=== PATIENT | female | born 1990 | race Caucasian/White ===

== ENCOUNTER 2017-04-18 21:25 | Emergency (ER) | payer SELFPAY ==
[2017-04-18 21:29] VITALS: BP 134/72; PULSE 96; TEMP 98.1; BMI 25.6
[2017-04-18] MEDS ORDERED: ALBUTEROL SO4 2.5/IPRATROPIUM 0.5 INH SOL 3 ML VIAL.NEB. NEB ONE ×2 (22:18→22:21)
--- NOTE | 2017-04-18 22:21 | PDOC ---
History of Present Illness - General Chief Complaint: Respiratory Stated Complaint: COLD SYMPTOMS Time Seen by Provider: 04/18/17 21:46 History Source: Patient Exam Limitations: No Limitations - History of Present Illness Initial Comments: 04/18/17 22:16 Patient complains of cough, runny nose, fever to 103 today with a moist nonproductive cough. States has general body aches and chills, but denies sore throat or earache pain. Is uncertain as to exposure, no one at home is sick. Works as an lead accountant. Timing/Duration: reports: getting worse, week. denies: just prior to arrival Severity: reports: mild, moderate Associated Symptoms: reports: cough, facial pain, fever/chills, nasal congestion , nasal drainage Past History - Travel Traveled outside of the country in the last 30 days: No Close contact w/someone who was outside of country & ill: No - Past Medical History Allergies/Adverse Reactions: Allergies Allergy/AdvReac Type Severity Reaction Status Date / Time No Known Allergies Allergy Verified 04/18/17 21:29 Home Medications: Ambulatory Orders Albuterol Sulfate Inhaler - [Ventolin HFA Inhaler -] 1 - 2 inh PO Q4H #1 inhaler 04/18/17 Azithromycin [Zithromax -] 250 mg PO DAILY #6 tab 04/18/17 Cardiac Disorders: Yes (heart murmur) - Psycho/Social/Smoking Cessation Hx Suicidal Ideation: No Smoking History: Never smoked Respiratory Specific PMHX - Complaint Specific PMHX Bronchitis: No Pneumonia: No Review of Systems - Review of Systems Able to Perform ROS?: Yes Is the patient limited Uzbek proficient: Yes Constitutional: Yes: Symptoms Reported, See HPI, Fever, Loss of Appetite, Malaise HEENTM: Yes: Symptoms Reported, See HPI, Nose Congestion, Throat Pain. No: Throat Swelling Respiratory: Yes: Symptoms reported, See HPI, Cough (moist ), Wheezing Cardiac (ROS): No: Symptoms Reported ABD/GI: Yes: See HPI. No: Symptoms Reported Musculoskeletal: No: Symptoms Reported All Other Systems: Reviewed and Negative *Physical Exam - Vital Signs Last Vital Signs Temp Pulse Resp BP Pulse Ox 98.1 F 96 H 18 134/72 100 04/18/17 21:27 04/18/17 21:27 04/18/17 21:27 04/18/17 21:27 04/18/17 21:27 - Physical Exam General Appearance: Yes: Nourished, Appropriately Dressed, Apparent Distress, Mild Distress HEENT: positive: IMELDA, TMs Normal (congested but landmarks easily visualized), Nasal Congestion, Rhinorrhea, Sinus Tenderness. negative: Pharynx Normal (mild erythema but no exudate or swelling), Tonsillar Exudate Neck: positive: Tender, Supple, Lymphadenopathy (R), Lymphadenopathy (L) Respiratory/Chest: positive: Lungs Clear, Normal Breath Sounds (but course), Wheezing Cardiovascular: positive: Regular Rhythm Musculoskeletal: positive: Normal Inspection, Vertebral Tenderness Extremity: positive: Normal Capillary Refill, Normal Inspection, Normal Range of Motion Integumentary: positive: Normal Color, Dry, Warm Neurologic: positive: data warehouse administrator II-XII NML intact, Fully Oriented, Alert, Normal Mood/ Affect, Normal Response, Motor Strength 5/5 Progress Note - Progress Note Progress Note: Upper respiratory infection, will continue Proventil puffs 2 puffs 4 times a day for the next 3 days then as needed. We'll give watch and wait azithromycin, and continue conservative measures for an additional 24 hours. *DC/Admit/Observation/Transfer Diagnosis at time of Disposition: Upper respiratory infection Qualifiers: URI type: unspecified viral URI Qualified Code(s): J06.9 - Acute upper respiratory infection, unspecified; B97.89 - Other viral agents as the cause of diseases classified elsewhere - Discharge Dispostion Disposition: HOME Condition at time of disposition: Stable Admit: No - Prescriptions Prescriptions: Albuterol Sulfate Inhaler - [Ventolin HFA Inhaler -] 1 - 2 inh PO Q4H #1 inhaler Azithromycin [Zithromax -] 250 mg PO DAILY #6 tab - Patient Instructions Printed Discharge Instructions: DI for Acute Bronchitis Additional Instructions: Rest, drink lots of fluids: Teas, water, soups, Pedialyte Saltwater gargles Steamy showers/seem to face break up mucus Avoid contact with others until fevers and cough resolved Lots of handwashing and good hygiene Continue [id number] medications for symptomatic relief Tylenol or Motrin for fever and pain 2 puffs albuterol inhaler 4 times a day for next 3 days then as needed Start azithromycin as directed for continued fevers, worsening cough with phlegm production, any changes in symptomatology. Followup with private physician in one to 2 days as needed Return to emergency department for worsened symptoms, fevers, dehydration - Post Discharge Activity Work/School Note: Back to Work
== END 2017-04-18 22:44 | disposition home or self-care (01) ==
LOC: JERFT 21:25
PROC: 3E0F7GC Introduction of Other Therapeutic Substance into Respiratory Tract, Via Natural or Artificial Opening (ICD-10-PCS; principal; 2017-04-18)
DX: J06.9 Acute upper respiratory infection, unspecified (principal)
CPT/HCPCS: 84703; 99281-25

== ENCOUNTER 2017-05-11 12:16 | Emergency (ER) | payer SELFPAY ==
[2017-05-11 12:32] VITALS: BP 118/67; PULSE 73; TEMP 98.4; BMI 26.5
--- NOTE | 2017-05-11 13:11 | PDOC ---
History of Present Illness - General Chief Complaint: Sore Throat Stated Complaint: SORE THROAT Time Seen by Provider: 05/11/17 12:42 History Source: Patient Exam Limitations: No Limitations - History of Present Illness Initial Comments: 05/11/17 12:47 States has felt feverish but did not take temperature, also developed a fine rash this morning has on face and chest wall. No one at home is sick. Has taken no medication for relief 05/11/17 16:19 Timing/Duration: unsure, 24 hours Severity: mild, moderate Associated Symptoms: reports: diaphoresis, fever/chills, headaches, malaise. denies: cough Past History - Travel Traveled outside of the country in the last 30 days: No Close contact w/someone who was outside of country & ill: No - Past Medical History Allergies/Adverse Reactions: Allergies Allergy/AdvReac Type Severity Reaction Status Date / Time No Known Allergies Allergy Verified 05/11/17 12:30 Home Medications: Ambulatory Orders Azithromycin [Zithromax -] 250 mg PO UTDICT #6 tab 05/11/17 Cardiac Disorders: Yes (heart murmur) - Psycho/Social/Smoking Cessation Hx Suicidal Ideation: No Smoking History: Never smoked Review of Systems - Review of Systems Able to Perform ROS?: Yes Is the patient limited Venezuelan proficient: Yes Constitutional: Yes: Symptoms Reported, See HPI, Malaise HEENTM: Yes: Symptoms Reported, See HPI, Nose Congestion Respiratory: No: Symptoms reported Musculoskeletal: No: Symptoms Reported Integumentary: No: Symptoms Reported All Other Systems: Reviewed and Negative *Physical Exam - Vital Signs Last Vital Signs Temp Pulse Resp BP Pulse Ox 98.4 F 73 19 118/67 100 05/11/17 12:30 05/11/17 12:30 05/11/17 12:30 05/11/17 12:30 05/11/17 12:30 - Physical Exam General Appearance: Yes: Nourished, Appropriately Dressed, Apparent Distress HEENT: positive: IMELDA, Normal ENT Inspection, Tonsillar Erythema. negative: TMs Normal (congested but landmarks easily visualized), Pharynx Normal Neck: positive: Supple (tonsils, no exudate but), Lymphadenopathy (R), Lymphadenopathy (L) Respiratory/Chest: positive: Lungs Clear, Normal Breath Sounds Cardiovascular: positive: Regular Rate Gastrointestinal/Abdominal: positive: Soft Musculoskeletal: positive: Normal Inspection Extremity: positive: Normal Capillary Refill, Normal Inspection Integumentary: positive: Normal Color, Dry, Warm Neurologic: positive: shampooer II-XII NML intact, Fully Oriented, Alert, Normal Mood/ Affect, Normal Response, Motor Strength /5 Medical Decision Making - Medical Decision Making 05/11/17 16:22 UCG negative, we'll treat with antibiotics as patient has pharyngitis and a streptococcal-appearing rash. Understands is probably a strep throat and antibiotic azithromycin will treat same. *DC/Admit/Observation/Transfer Diagnosis at time of Disposition: Pharyngitis Qualifiers: Pharyngitis/tonsillitis etiology: unspecified etiology Qualified Code(s): J02.9 - Acute pharyngitis, unspecified - Discharge Dispostion Disposition: HOME Condition at time of disposition: Stable Admit: No - Prescriptions Prescriptions: Azithromycin [Zithromax -] 250 mg PO UTDICT #6 tab - Patient Instructions Printed Discharge Instructions: DI for Pharyngitis/Tonsillopharyngitis -- Adult Additional Instructions: Rest, drink lots of fluids: Teas, water, soups Eat cold things: Ice cream, ice pops, ice chips Saltwater gargles Steamy showers/seem to face break up mucus Avoid contact with others until fevers and pain resolved Lots of handwashing and good hygiene, this is contagious Azithromycin as directed Tylenol or Motrin for fever and pain Followup with private physician in one to 2 days as needed if not improving Return to emergency department for worsened symptoms, fevers, dehydration - Post Discharge Activity Work/School Note: Back to Work
== END 2017-05-11 13:33 | disposition home or self-care (01) ==
LOC: JERFT 12:16
DX: J02.9 Acute pharyngitis, unspecified (principal)
CPT/HCPCS: 84703; 99281-25

== ENCOUNTER 2018-02-09 13:20 | Emergency (ER) | payer OTHER ==
--- NOTE | 2018-02-09 13:32 | PDOC ---
History of Present Illness - General Chief Complaint: Chest Pain Stated Complaint: CHEST PAIN Time Seen by Provider: 02/09/18 13:28 History Source: Patient - History of Present Illness Initial Comments: 02/09/18 13:58 27 year old female with no reported PMH presents after a mechanical fall c/o L sided chest pain. Patient states she walking in her home when she tripped on a bottle hitting her head and torso. Patient denies any LOC and was immediately ambulatory after the fall. Denies any pre-fall chest pain, shortness of breath as well as any post fall nausea. Patient states she tried OTC pain medications without any relief and when she noted increased swelling of her left chest she presented to the ED for further evaluation. Patient denies chest pain, headache or dizziness. Patient denies fever, chills, abdominal pain, nausea, vomit, diarrhea or constipation. Patient denies dysuria, frequency, urgency or hematuria. Patient denies sick contacts or recent travel. Past History - Past Medical History Allergies/Adverse Reactions: Allergies Allergy/AdvReac Type Severity Reaction Status Date / Time No Known Allergies Allergy Verified 02/09/18 13:37 Home Medications: Ambulatory Orders NK [No Known Home Medication] 02/09/18 Cardiac Disorders: Yes (heart murmur) - Suicide/Smoking/Psychosocial Hx Smoking History: Never smoked Review of Systems - Review of Systems Constitutional: No: Chills, Fever HEENTM: No: Recent change in vision Respiratory: No: Shortness of Breath, Wheezing Cardiac (ROS): No: Chest Pain, Edema, Lightheadedness, Palpitations ABD/GI: No: Constipated, Diarrhea, Nausea, Vomiting : No: Burning, Dysuria *Physical Exam - Physical Exam General Appearance: Yes: Nourished, Appropriately Dressed HEENT: positive: EOMI, IMELDA Neck: positive: Trachea midline, Supple Respiratory/Chest: positive: Lungs Clear Cardiovascular: positive: S1, S2. negative: Edema, JVD Vascular Pulses: Dorsalis-Pedis (R): 2+, Doralis-Pedis (L): 2+ Gastrointestinal/Abdominal: positive: Normal Bowel Sounds, Soft Musculoskeletal: positive: Other (no gross clavicular deformity, no TTP, full ROM) Extremity: positive: Normal Capillary Refill, Pelvis Stable Integumentary: positive: Normal Color, Dry, Warm Neurologic: positive: Fully Oriented, Alert Medical Decision Making - Medical Decision Making 02/09/18 14:28 27 year old female presents after a mechanical fall c/o anterior wall chest pain. Physical exam significant for anterior chest wall edema and TTP. Will obtain CXR to r/o fracture, contusion. Pain control with Motrin. Reassess. CXR negative for clavicular fracture as well as pulmonary contusion. Patient's pain significant resolved with Motrin. Will discharge home with return precautions and PMD follow-up. I discussed the physical exam findings, ancillary test results and final diagnoses with the patient. I answered all of the patient's questions. The patient was satisfied with the care received and felt comfortable with the discharge plan and treatment plan. The patient will return to the Emergency Department with any new, persistent or worsening symptoms. *DC/Admit/Observation/Transfer Diagnosis at time of Disposition: Chest pain - Discharge Dispostion Disposition: HOME Condition at time of disposition: Good Admit: No - Referrals Referrals: Jose Torres MD [Staff Physician] - - Patient Instructions Printed Discharge Instructions: Muscle Strain Additional Instructions: You can take Motrin (600 mg) up to three times daily for your chest pain. Call Dr. Brian Garcia (contact information provided) to make an appointment to establish primary care. Return to the Emergency Department for any new/worsening/concerning symptoms. - Post Discharge Activity Forms/Work/School Notes: Back to Work
[2018-02-09] MEDS ORDERED: IBUPROFEN 400 MG TABLET (FP) PO ONE ×2 (13:33→14:27)
[2018-02-09 13:43] VITALS: TEMP 98.1; BMI 28.3
[2018-02-09 14:19] VITALS: BP 116/79; PULSE 82
--- NOTE | 2018-02-09 16:26 | PDOC ---
Attending Attestation - Resident Resident Name: JustusIsabelle - ED Attending Attestation I have performed the following: I have examined & evaluated the patient, The case was reviewed & discussed with the resident, I agree w/resident's findings & plan, Exceptions are as noted - HPI HPI: 02/09/18 15:51 Ms baum is a 27 yo F who presents to the ER with a complaint of chest pain Pt states she tripped and fell onto a shoe (+) head trauma No LOC, No Amnesia Chest wall tender to palpation Pt has not taken any motrin for her pain No medical history No recent travel - Physicial Exam PE: 02/09/18 15:52 GENERAL: The patient is in no acute distress. HEAD: Normal with no signs of trauma. LUNGS: Breath sounds equal, clear to auscultation bilaterally. No wheezes, and no crackles. HEART: Regular rate and rhythm, normal S1 and S2 without murmur, rub or gallop. ABDOMEN: Soft, nontender, EXTREMITIES: Normal range of motion NEUROLOGICAL: Cranial nerves II through XII grossly intact. Normal speech. No focal neurological deficits. MUSCULOSKELETAL: Left anterior chest wall inferior to the lateral clavicle is swollen, tender to palpation, no deformities noted, no clavicular deformities, no bruising SKIN: No bruising, no laceration - Medical Decision Making Will do CXR Motrin for pain R/o rib fracture Likely contusion Pt pain is more lateral to the head of the clavicle, there fore I do not believe this is due to sternoclavicular dislocation Clinical Impression: chest wall pain, initial presentation
--- NOTE | 2018-02-13 10:36 | EKG ---
Test Reason : Blood Pressure : / mmHG Vent. Rate : 088 BPM Atrial Rate : 088 BPM P-R Int : 152 ms QRS Dur : 068 ms QT Int : 340 ms P-R-T Axes : 080 058 038 degrees QTc Int : 411 ms POOR DATA QUALITY, INTERPRETATION MAY BE ADVERSELY AFFECTED NORMAL SINUS RHYTHM POSSIBLE LEFT ATRIAL ENLARGEMENT BORDERLINE ECG NO PREVIOUS ECGS AVAILABLE Confirmed by MAC MARTINEZ, NICHOLAS ([id number]) on 02/13/2018 10:36:26 AM Referred By: Confirmed By:NICHOLAS WATTS MD
== END 2018-02-09 15:54 | disposition home or self-care (01) ==
LOC: JER 13:20
DX: S09.8XXA Other specified injuries of head, initial encounter (principal); S29.8XXA Other specified injuries of thorax, initial encounter; W18.09XA Striking against other object with subsequent fall, initial encounter; Y93.89 Activity, other specified; Y92.038 Other place in apartment as the place of occurrence of the external cause; Y99.8 Other external cause status
CPT/HCPCS: 71046-TC-FY; 84703; 93005; 93010; 99284-25

== ENCOUNTER 2018-03-21 18:33 | Emergency (ER) | payer OTHER ==
[2018-03-21 18:40] VITALS: BP 116/90; TEMP 98.3; BMI 26.9
--- NOTE | 2018-03-21 19:05 | PDOC ---
History of Present Illness - General Chief Complaint: Pain, Acute Stated Complaint: HEAD/NECK PROBLEM Time Seen by Provider: 03/21/18 18:43 History Source: Patient Exam Limitations: No Limitations - History of Present Illness Initial Comments: CHIEF COMPLAINT: 27 y/o afebrile female with no significant PMH c/o right sided neck pain x 4 days. HISTORY OF PRESENT ILLNESS: The patient states she woke up with the pain 4 days ago. She's intermittently taken 400mg of advil or motrin for pain with little relief. She denies trauma, fall, heavy lifting, f/c, n/v/d, dizziness, changes in vision/hearing, CP, SOB, abd pain, numbness/tingling in extremities, recent travel. Vital signs on arrival are notable for pulse of 106. REVIEW OF SYSTEMS: GENERAL/CONSTITUTIONAL: No fever/chills. No weakness. No weight change. HEAD, EYES, EARS, NOSE AND THROAT: No change in vision. No ear pain or discharge. No sore throat. CARDIOVASCULAR: No chest pain or shortness of breath. RESPIRATORY: No cough, wheezing, or hemoptysis. GASTROINTESTINAL: See history of present illness. GENITOURINARY: No dysuria, frequency, or change in urination. MUSCULOSKELETAL: +right sided neck pain. No joint or muscle swelling or pain. No back pain. SKIN: No rash or easy bruising. NEUROLOGIC: No headache, vertigo, loss of consciousness, or loss of sensation. PHYSICAL EXAM: GENERAL: The patient is awake, alert, and fully oriented, in no acute distress. She is well appearing and ambulatory. HEAD: Normal with no signs of trauma. NECK: +palpable knot to right cervical paravertebral muscles. Pain reproduced with flexion, extension and lateral movement of neck towards right shoulder. No cervical crepitus or step offs. Negative Kernig's and Brudzinski's signs. ENT: Pupils equal, round and reactive to light, extraocular movements intact, sclera anicteric, conjunctiva clear. No pain with EOMs. LUNGS: Clear to auscultation bilaterally. Normal excursion. No respiratory distress or use of accessory muscles. CV: RRR, S1/S2, no MRG. Cap refill < 2 sec. ABDOMEN: Soft, non-distended, non-tender even to deep palpation, no hepatomegaly or splenomegaly, no masses. EXTREMITIES: Normal range of motion, no edema. NEUROLOGICAL: Normal speech, normal gait. CN II-XII grossly intact. PSYCH: Normal mood, normal affect. SKIN: Warm, dry, normal turgor, no rashes or lesions noted. Past History - Past Medical History Allergies/Adverse Reactions: Allergies Allergy/AdvReac Type Severity Reaction Status Date / Time No Known Allergies Allergy Verified 03/21/18 18:37 Home Medications: Ambulatory Orders Cyclobenzaprine HCl [Flexeril 10 mg] 10 mg PO BID PRN #20 tablet 03/21/18 Naproxen 500 mg PO BID #20 tablet 03/21/18 Cardiac Disorders: Yes (heart murmur) COPD: No - Suicide/Smoking/Psychosocial Hx Smoking History: Never smoked Have you smoked in the past 12 months: No Information on smoking cessation initiated: No Hx Alcohol Use: No Drug/Substance Use Hx: No Substance Use Type: None *Physical Exam - Vital Signs Last Vital Signs Temp Pulse Resp BP Pulse Ox 98.3 F 106 H 18 116/90 100 03/21/18 18:39 03/21/18 18:39 03/21/18 18:39 03/21/18 18:39 03/21/18 18:39 Medical Decision Making - Medical Decision Making A/P: 27 y/o afebrile female with right sided musculoskeletal neck pain. No imaging indicated at this time. Plan is as follows: 1. hcg 2. PO valium 3. IM toradol hcg - negative Patient refused Toradol Patient will be discharged to home with rx for naproxen and flexeril. Informed her flexeril may cause drowsiness. Suggested she apply heat and massage to affected area, stretch and f/u with her PMD within 1 week. The patient verbalizes understanding of all instructions, has no further questions and is awaiting discharge. *DC/Admit/Observation/Transfer Diagnosis at time of Disposition: Neck muscle strain Qualifiers: Encounter type: initial encounter Qualified Code(s): S16.1XXA - Strain of muscle, fascia and tendon at neck level, initial encounter - Discharge Dispostion Disposition: HOME Condition at time of disposition: Good - Prescriptions Prescriptions: Cyclobenzaprine HCl [Flexeril 10 mg] 10 mg PO BID PRN #20 tablet PRN Reason: Muscle Spasms Naproxen 500 mg PO BID #20 tablet - Referrals - Patient Instructions Printed Discharge Instructions: DI for Neck Sprain Additional Instructions: Discharge Instructions: -You have a neck sprain with muscle spasm -2 prescriptions have been sent to your pharmacy; flexeril may cause drowsiness -Stretch your neck and apply heat and massage to help with pain -Follow up with your doctor tomorrow -Return to the ER with any worsening or concerning symptoms - Post Discharge Activity Forms/Work/School Notes: Back to Work
[2018-03-21] MEDS ORDERED: diazePAM 5 MG TABLET PO ONE (19:18)
[2018-03-21] MEDS ORDERED: KETOROLAC TROMETHAMINE 60 MG/2 ML VIAL IM ONE (19:18)
[2018-03-21] MEDS ORDERED: KETOROLAC TROMETHAMINE 60 MG/2 ML VIAL ONE (19:28)
[2018-03-21] MEDS ORDERED: diazePAM 5 MG TABLET ONE (19:28)
[2018-03-21 19:36] VITALS: PULSE 100
== END 2018-03-21 19:36 | disposition home or self-care (01) ==
LOC: JERFT 18:33
PROC: 3E0233Z Introduction of Anti-inflammatory into Muscle, Percutaneous Approach (ICD-10-PCS; principal; 2018-03-21)
DX: S16.1XXA Strain of muscle, fascia and tendon at neck level, initial encounter (principal); M62.838 Other muscle spasm; X58.XXXA Exposure to other specified factors, initial encounter; Y93.89 Activity, other specified; Y92.89 Other specified places as the place of occurrence of the external cause; Y99.8 Other external cause status
CPT/HCPCS: 84703; 99281-25

== ENCOUNTER 2018-05-23 19:47 | Emergency (ER) | payer OTHER ==
--- NOTE | 2018-05-23 20:12 | PDOC ---
Rapid Medical Evaluation Time Seen by Provider: 05/23/18 20:09 Medical Evaluation: Allergies Allergy/AdvReac Type Severity Reaction Status Date / Time No Known Allergies Allergy Verified 03/21/18 18:37 I have performed a brief in-person evaluation of this patient. The patient presents with a chief complaint of: here for a repeat CBC. Her doctor said her numbers were off. She has no symptoms and feels well. Pertinent physical exam findings: none I have ordered the following: cbc The patient will proceed to the ED for further evaluation. Discharge Disposition - Diagnosis Abnormal laboratory test - Referrals - Patient Instructions - Post Discharge Activity
[2018-05-23 20:14] VITALS: BP 124/76; PULSE 78; TEMP 98.3; BMI 26.6
[2018-05-23 20:50] LABS: BASO % 0.3 % (0-2.0); EOS % 1.8 % (0-4.5); HEMATOCRIT 34.4 % (32.4-45.2); HEMOGLOBIN 11.1 GM/dL (10.7-15.3); LYMPH % 21.4 % (8-40); MCH 27.2 pg (25.7-33.7); MCHC 32.4 g/dl (32.0-36.0); MEAN CELL VOLUME 83.8 fl (80-96); MONO % 8.1 % (3.8-10.2); NEUT % 68.4 % (42.8-82.8); PLATELET COUNT 171 K/MM3 (134-434); RDW 15.1 % (11.6-15.6); WHITE BLOOD COUNT 13.7 K/mm3 (4.0-10.0)
--- NOTE | 2018-05-23 20:59 | PDOC ---
History of Present Illness - General Chief Complaint: Revisit, Lab Variance Stated Complaint: LOW WHITE BLOOD COUNT Time Seen by Provider: 05/23/18 20:09 - History of Present Illness Initial Comments: 27-year-old female presents for evaluation because she was told she was anemic by her primary care physician she would like to have her blood work drawn. 05/23/18 20:54 Past History - Past Medical History Allergies/Adverse Reactions: Allergies Allergy/AdvReac Type Severity Reaction Status Date / Time No Known Allergies Allergy Verified 03/21/18 18:37 Home Medications: Ambulatory Orders Cyclobenzaprine HCl [Flexeril 10 mg] 10 mg PO BID PRN #20 tablet 03/21/18 Naproxen 500 mg PO BID #20 tablet 03/21/18 Cardiac Disorders: Yes (heart murmur) COPD: No - Suicide/Smoking/Psychosocial Hx Smoking History: Never smoked Have you smoked in the past 12 months: No Information on smoking cessation initiated: No Hx Alcohol Use: No Drug/Substance Use Hx: No Substance Use Type: None Review of Systems - Review of Systems All Other Systems: Reviewed and Negative *Physical Exam - Vital Signs Last Vital Signs Temp Pulse Resp BP Pulse Ox 98.3 F 78 18 124/76 100 05/23/18 20:12 05/23/18 20:12 05/23/18 20:12 05/23/18 20:12 05/23/18 20:12 - Physical Exam Comments: HEAD: NC/AT EYES: Conjuntiva clear MS: Full ROM in all joints without edema NEUROLOGIC: No gross sensory or motor deficits, SKIN:\no lesions or rashes 05/23/18 20:56 ED Treatment Course - LABORATORY CBC & Chemistry Diagram: 05/23/18 20:20 *DC/Admit/Observation/Transfer Diagnosis at time of Disposition: Abnormal laboratory test - Discharge Dispostion Disposition: HOME Condition at time of disposition: Stable - Referrals Referrals: Lyssa Quiñones NP [Primary Care Provider] - - Patient Instructions Additional Instructions: According to today's labs you are not anemic. You have a slight elevation in her white count which may be due to a viral infection or no infection at all. It may be just do to stress please follow-up with your primary care physician for further evaluation and treatment options. There is nothing to be done tonight emergently. - Post Discharge Activity
== END 2018-05-23 21:27 | disposition home or self-care (01) ==
LOC: JERFT 19:47
DX: R79.9 Abnormal finding of blood chemistry, unspecified (principal)
CPT/HCPCS: 36415; 85025; 99281-25

== ENCOUNTER 2018-07-04 13:08 | Emergency (ER) | payer OTHER ==
[2018-07-04 13:14] VITALS: BP 128/66; PULSE 97; TEMP 98.9; BMI 27.1
--- NOTE | 2018-07-04 13:48 | PDOC ---
History of Present Illness <Geetha Zavala - Last Filed: 07/04/18 15:37> - General History Source: Patient Exam Limitations: No Limitations - History of Present Illness Initial Comments: 07/04/18 15:48 Sussy Bella The patient is a 27-year-old female, with a past medical history of anemia and heart murmur, who presents to the ED for 1 month of generalized weakness. The patient reports that she had recent abdominoplasty and liposuction 1 month ago in [facility] with no complications. However, prior to the surgery her Hgb was noted to to be 11.4. Patient did not receive a blood transfusion but instead was given IV iron which helped to bring up the Hgb to 11.9. She also reports feeling dizzy and short of breath yesterday which has now resolved. Patient has been taking extra strength Tylenol for the pain. LMP was on 06/06 and was normal. She has not had a recent check up since her surgery. Patient does report easy bruising. denies heavy bleeding, but periods are irregular. denies insect bites or rash. The patient denies any fever, chills, nausea, vomiting, diarrhea, or abdominal pain. Denies any chest pain or shortness of breath. Denies any numbness, weakness, or tingling on one side. Allergies: Allergies. Surgical History: Abdominoplasty and Liposuction. Social History: None reported. 07/04/18 15:50 <Tracy Chávez - Last Filed: 07/04/18 16:00> - General Chief Complaint: Revisit, Lab Variance Stated Complaint: WEAKNESS Time Seen by Provider: 07/04/18 13:48 Past History <Geetha Zavala - Last Filed: 07/04/18 15:37> - Past Medical History Cardiac Disorders: Yes (heart murmur) COPD: No - Suicide/Smoking/Psychosocial Hx Smoking History: Never smoked Have you smoked in the past 12 months: No Hx Alcohol Use: No Drug/Substance Use Hx: No Substance Use Type: None <Tracy Chávez - Last Filed: 07/04/18 16:00> - Past Medical History Allergies/Adverse Reactions: Allergies Allergy/AdvReac Type Severity Reaction Status Date / Time No Known Allergies Allergy Verified 07/04/18 13:11 Home Medications: Ambulatory Orders Cyclobenzaprine HCl [Flexeril 10 mg] 10 mg PO BID PRN #20 tablet 03/21/18 Naproxen 500 mg PO BID #20 tablet 03/21/18 Review of Systems - Review of Systems Able to Perform ROS?: Yes Comments:: 07/04/18 15:49 GENERAL/CONSTITUTIONAL: (+)Generalized weakness. No fever or chills. no sweats. HEAD, EYES, EARS, NOSE AND THROAT: No congestion. CARDIOVASCULAR: No chest pain or palpitations, syncope or edema. RESPIRATORY: +SOB, No cough, wheezing, or hemoptysis. GASTROINTESTINAL No nausea/vomiting. No diarrhea or constipation. No bloody stools. GENITOURINARY: No hematuria, dysuria, frequency, urgency or other changes. MUSCULOSKELETAL: No joint or muscle swelling or pain. No neck or back pain. SKIN: No rash or changes in skin color or lesions. NEUROLOGIC: No headache, vertigo, loss of consciousness, or change in strength/ sensation. +dizziness HEMATOLOGIC/LYMPHATIC: (+)anemia, easy bruising. No history of blood clots. ALLERGIC/IMMUNOLOGIC: No allergies All other systems reviewed and negative, or as documented in HPI. <Tracy Chávez - Last Filed: 07/04/18 16:00> *Physical Exam - Vital Signs Last Vital Signs Temp Pulse Resp BP Pulse Ox 98.9 F 97 H 16 128/66 100 07/04/18 13:13 07/04/18 13:13 07/04/18 13:13 07/04/18 13:13 07/04/18 13:13 <Geetha Zavala - Last Filed: 07/04/18 15:37> - Vital Signs Last Vital Signs Temp Pulse Resp BP Pulse Ox 98.9 F 97 H 16 128/66 100 07/04/18 13:13 07/04/18 13:13 07/04/18 13:13 07/04/18 13:13 07/04/18 13:13 - Physical Exam Comments: 07/04/18 15:50 General: Well appearing, awake and alert, NAD. HEENT: NCAT, PERRL, EOMI, clear conjunctiva, anicteric, moist mucus membranes, clear oropharynx, no oral lesions.. Neck: neck supple, FROM Resp: CTAB, normal and even respirations, no respiratory distress CVS: RRR, no murmurs, 2+ peripheral pulses throughout, no peripheral edema Abdomen: soft, NTND, no peritoneal signs. Back: nontender, normal inspection and ROM MSK: no edema, CAMPOS x4, ROM intact. No clubbing or cyanosis. normal bulk and tone. no joint tenderness or laxity. no muscle tenderness. Neuro: alert, oriented appropriately; no focal neurologic deficits. SILT, 5/5 distal and prox strength in all extrem. speech clear. Skin: (+)Faint nontender healing bruises on right forearm. warm and well perfused, cap refill <2 sec, normal color <Tracy Chávez - Last Filed: 07/04/18 16:00> ED Treatment Course - LABORATORY CBC & Chemistry Diagram: 07/04/18 14:40 07/04/18 14:40 - ADDITIONAL ORDERS Additional order review: Laboratory Results 07/04/18 07/04/18 07/04/18 14:40 14:40 14:40 PT with INR 13.30 H INR 1.18 H PTT (Actin FS) 31.2 Sodium Potassium Chloride Carbon Dioxide Anion Gap BUN Creatinine Creat Clearance w eGFR Random Glucose Calcium Total Bilirubin AST ALT Alkaline Phosphatase Total Protein Albumin Blood Type O POSITIVE Antibody Screen Negative 07/04/18 14:40 PT with INR INR PTT (Actin FS) Sodium 140 Potassium 4.4 Chloride 106 Carbon Dioxide 29 Anion Gap 5 L BUN 13 Creatinine 0.6 Creat Clearance w eGFR > 60 Random Glucose 83 Calcium 8.6 Total Bilirubin 0.6 AST 25 ALT 25 Alkaline Phosphatase 58 Total Protein 7.2 Albumin 3.6 Blood Type Antibody Screen 07/04/18 14:40 RBC 4.30 MCV 84.9 MCHC 31.9 L RDW 16.9 H MPV 11.1 Neutrophils % 68.4 Lymphocytes % 18.5 Monocytes % 8.4 Eosinophils % 4.2 D Basophils % 0.5 <Geetha Zavala - Last Filed: 07/04/18 15:37> - LABORATORY CBC & Chemistry Diagram: 07/04/18 14:40 07/04/18 14:40 <Tracy Chávez - Last Filed: 07/04/18 16:00> Medical Decision Making - Medical Decision Making 07/04/18 15:51 27 YOF with h/o anemia and heart murmur presenting with 1 month of gen weakness and malaise, dizziness. had abdominoplasty and liposuction in the 1 month ago, had no complications with surgery, received IV iron for anemia which resolved denies AP or VB or other complications. denies insect bite. +recent travel to for travel vitals wnl. labs and lytes wnl. H/H at baseline. mild leukocytosis of 11K, but nonspecific and no fevers. nontoxic appearing. coags wnl lyme test sent. pending results with reflex WB. possibly viral etiology vs thyroid vs metabolic. no e/o anemia or complications. abdomen soft and nontender, so doubt emergent pathology upreg test negative I discussed the physical exam findings, ancillary test results and possible diagnoses with the patient. I answered all of the patient's questions. The patient was satisfied with the care received and felt comfortable with the discharge plan and treatment plan. The patient will return to the Emergency Department with any new, persistent or worsening symptoms. 07/04/18 15:52 07/04/18 16:00 <Tracy Chávez - Last Filed: 07/04/18 16:00> *DC/Admit/Observation/Transfer <Geetha Zavala - Last Filed: 07/04/18 15:37> - Discharge Dispostion Decision to Admit order: No <Tracy Chávez - Last Filed: 07/04/18 16:00> Diagnosis at time of Disposition: Dizziness, Chronic anemia, Malaise - Discharge Dispostion Disposition: HOME Condition at time of disposition: Good - Referrals Referrals: Rena Carrasco [Staff Physician] - Michael Carrasco MD [Staff Physician] - Toby Fraser MD [Staff Physician] - - Patient Instructions Printed Discharge Instructions: DI for Fatigue, DI for Iron Deficiency Anemia- Adult Additional Instructions: follow up on your lyme testing. your blood work is normal with baseline anemia that is not changed your blood work including electrolytes and platelets and coagulation factors are normal follow up with your doctor for further testing and follow up on the results including lyme. return if worsening symptoms including bleeding, fainting, infection, dehydration or weakness, numbness tingling or other concerning symptoms. stay well hydrated. take vitamins continue with wide variety diet. - Post Discharge Activity Forms/Work/School Notes: Back to Work
[2018-07-04 14:46] LABS: BASO % 0.5 % (0-2.0); EOS % 4.2 % (0-4.5); HEMATOCRIT 36.5 % (32.4-45.2); HEMOGLOBIN 11.7 GM/dL (10.7-15.3); LYMPH % 18.5 % (8-40); MCH 27.1 pg (25.7-33.7); MCHC 31.9 g/dl (32.0-36.0); MEAN CELL VOLUME 84.9 fl (80-96); MEAN PLT VOLUME 11.1 fl (7.5-11.1); MONO % 8.4 % (3.8-10.2); NEUT % 68.4 % (42.8-82.8); PLATELET COUNT 175 K/MM3 (134-434); RDW 16.9 % (11.6-15.6); WHITE BLOOD COUNT 11.2 K/mm3 (4.0-10.0)
[2018-07-04 15:00] LABS: INR 1.18 (0.83-1.09); PROTHROMBIN TIME (PATIENT) 13.3 SEC (9.7-13.0)
[2018-07-04 15:17] LABS: ALBUMIN 3.6 g/dl (3.4-5.0); ALK PHOS 58 U/L (45-117); ANION GAP 5 MMOL/L (8-16); BILIRUBIN,TOTAL 0.6 mg/dL (0.2-1); BLOOD UREA NITROGEN 13 mg/dL (7-18); CALCIUM 8.6 mg/dL (8.5-10.1); CHLORIDE 106 mmol/L (98-107); CO2 29 mmol/L (21-32); CREATININE 0.6 mg/dL (0.55-1.3); GLUCOSE,RANDOM 83 mg/dL (74-106); POTASSIUM 4.4 mmol/L (3.5-5.1); SGOT/AST 25 U/L (15-37); SGPT/ALT 25 U/L (13-61); SODIUM 140 mmol/L (136-145); TOT PROT 7.2 g/dl (6.4-8.2)
--- NOTE | 2018-07-05 08:05 | EKG ---
Test Reason : Blood Pressure : / mmHG Vent. Rate : 074 BPM Atrial Rate : 074 BPM P-R Int : 162 ms QRS Dur : 078 ms QT Int : 378 ms P-R-T Axes : 072 069 046 degrees QTc Int : 419 ms NORMAL SINUS RHYTHM POSSIBLE LEFT ATRIAL ENLARGEMENT BORDERLINE ECG WHEN COMPARED WITH ECG OF 09-FEB-2018 13:26, NO SIGNIFICANT CHANGE WAS FOUND Confirmed by NICHOLAS WATTS MD ([id number]) on 07/05/2018 8:05:24 AM Referred By: Confirmed By:NICHOLAS WATTS MD
== END 2018-07-04 16:31 | disposition home or self-care (01) ==
LOC: JER 13:08
DX: R42 Dizziness and giddiness (principal); R53.81 Other malaise; D64.89 Other specified anemias; R01.1 Cardiac murmur, unspecified
CPT/HCPCS: 36415; 80053; 84703; 85025; 85610; 85730; 86618; 86850; 86900; 86901; 93005; 93010; 99281-25

== ENCOUNTER 2018-10-19 12:31 | Emergency (ER) | payer OTHER ==
[2018-10-19 12:36] VITALS: BP 128/76; PULSE 103; TEMP 98.5; BMI 28.3
[2018-10-19] MEDS ORDERED: IBUPROFEN 600 MG TABLET (FP) PO ONE ×2 (13:18→13:19)
[2018-10-19] MEDS ORDERED: DEXAMETHASONE 4 MG TABLET (FP) PO ONE (13:18)
[2018-10-19] MEDS ORDERED: DEXAMETHASONE 4 MG TABLET (FP) ONE (13:20)
--- NOTE | 2018-10-19 13:24 | PDOC ---
History of Present Illness - General Chief Complaint: Cold Symptoms Stated Complaint: SORE THROAT Time Seen by Provider: 10/19/18 12:39 History Source: Patient Exam Limitations: No Limitations - History of Present Illness Initial Comments: 10/19/18 13:19 HISTORY OF PRESENT ILLNESS: 28-year-old woman who denies medical history of presents for evaluation of fevers, headaches, sore throat, dry cough, body aches for the past 2 days. Patient was seen and evaluated in this emergency Department on 10/17 and had negative throat culture at that time. Patient reports is been attempting symptomatic treatment with minimal relief of symptoms. Patient states when she was evaluated 2 days ago she only had a sore throat and her other symptoms have developed since her discharge at that time. No recent travel or sick contacts. PAST MEDICAL HISTORY: Denies past medical history SURGICAL HISTORY: Denies ALLERGIES: No known drug allergies REVIEW OF SYSTEMS General/Constitutional: Subjective fevers. Denies chills. Denies weakness, weight change. HEENT: Denies change in vision. Denies ear pain or discharge. +sore throat. Cardiovascular: Denies chest pain or shortness of breath. Respiratory: Dry unproductive cough. Denies wheezing, or hemoptysis. Gastrointestinal: Denies nausea, vomiting, diarrhea or constipation. Denies rectal bleeding. Genitourinary: Denies dysuria, frequency, or change in urination. Musculoskeletal: +myalgias. Denies neck or back pain. Skin and breasts: Denies rash or easy bruising. Neurologic: Frontal headache. Denies vertigo, loss of consciousness, or loss of sensation. Psychiatric: Denies depression or anxiety. Endocrine: Denies increased thirst. Denies abnormal weight change. Hematologic/Lymphatic: Denies anemia, easy bleeding, or history of blood clots. Allergic/Immunologic: Denies hives or skin allergy. Denies latex allergy. PHYSICAL EXAM General Appearance: Well-appearing, appropriately dressed. No apparent distress , no intoxication. HEENT: EOMI, PERRLA, normal voice, TMs normal. No conjunctival pallor. No photophobia, scleral icterus. Cobblestoning present in the posterior oropharynx. Mild erythema noted without lesions or exudates. Neck: Supple. Trachea midline. No tenderness, rigidity, carotid bruit, stridor or thyromegaly. Nontender anterior cervical lymphadenopathy present. Respiratory/Chest: Lungs CTAB. No shortness of breath, chest tenderness, respiratory distress, accessory muscle use. No crackles, rales, rhonchi, stridor , wheezing, dullness Cardiovascular: RRR. S1, S2. No JVD, murmur, bradycardia, tachycardia. Vascular Pulses: Dorsalis-Pedis (R): 2+, Dorsalis-Pedis (L): 2+ Gastrointestinal/Abdominal: Normal bowel sounds. Abdomen soft, non-distended. No tenderness or rebound tenderness. No organomegaly, pulsatile mass, guarding, hernia, hepatomegaly, splenomegaly. Lymphatic: No adenopathy, tenderness. Musculoskeletal/Extremities: Normal inspection. FROM of all extremities, normal capillary refill. Pelvis Stable. No CVA tenderness. No tenderness to extremities, pedal edema, swelling, erythema or deformity. Integumentary: Appropriate color, dry, warm. No cyanosis, erythema, jaundice or rash Neurologic: tool and die manager II-XII intact. Fully oriented, alert. Appropriate mood/affect. Motor strength 5/5. No appreciable EOM palsy, facial droop or sensory deficit. Past History - Past Medical History Allergies/Adverse Reactions: Allergies Allergy/AdvReac Type Severity Reaction Status Date / Time No Known Allergies Allergy Verified 10/19/18 12:33 Home Medications: Ambulatory Orders Oseltamivir Phosphate [Tamiflu -] 75 mg PO BID #10 capsule 10/19/18 Cardiac Disorders: Yes (heart murmur) COPD: No - Suicide/Smoking/Psychosocial Hx Smoking History: Never smoked Have you smoked in the past 12 months: No Hx Alcohol Use: No Drug/Substance Use Hx: No Substance Use Type: None *Physical Exam - Vital Signs Last Vital Signs Temp Pulse Resp BP Pulse Ox 98.5 F 103 H 18 128/76 99 10/19/18 12:35 10/19/18 12:35 10/19/18 12:35 10/19/18 12:35 10/19/18 12:35 Moderate Sedation - Procedure Monitoring Vital Signs: Procedure Monitoring Vital Signs Temperature 98.5 F 10/19/18 12:35 Pulse Rate 103 H 10/19/18 12:35 Respiratory Rate 18 10/19/18 12:35 Blood Pressure 128/76 10/19/18 12:35 O2 Sat by Pulse Oximetry (%) 99 10/19/18 12:35 Medical Decision Making - Medical Decision Making 10/19/18 13:19 A/P: 28-year-old female with 2 days of flulike symptoms TMs within normal limits bilaterally Nasal congestion present with inflamed nasal turbinates Oropharynx erythematous with cobblestoning in the posterior oropharynx. Nontender anterior cervical lymphadenopathy present Lungs clear to auscultation bilaterally Abdomen soft nontender nondistended Patient had a negative rapid strep testing performed on 10/17. Influenza swab Motrin 600 mg orally Decadron 10 mg orally Reassess 10/19/18 14:09 Influenza testing is positive for influenza A. Will discharge the patient with prescription for Tamiflu and to continue with symptomatic treatment. I discussed the physical exam findings, ancillary test results and final diagnoses with the patient. I answered all of the patient's questions. The patient was satisfied with the care received and felt comfortable with the discharge plan and treatment plan. The patient will call their primary care physician within 24 hours to arrange follow-up and will return to the Emergency Department with any new, persistent or worsening symptoms. *DC/Admit/Observation/Transfer Diagnosis at time of Disposition: Influenza A - Discharge Dispostion Disposition: HOME Condition at time of disposition: Fair Decision to Admit order: No - Prescriptions Prescriptions: Oseltamivir Phosphate [Tamiflu -] 75 mg PO BID #10 capsule - Referrals - Patient Instructions Additional Instructions: Rest, drink lots of fluids: Teas, water, soups, Pedialyte Saltwater gargles Steamy showers/seem to face break up mucus Avoid contact with others until fevers and cough resolved Lots of handwashing and good hygiene Continue [id number] medications for symptomatic relief Tylenol or Motrin for fever and pain Tamiflu 75mg twice a day for 5 days. Followup with private physician in one to 2 days as needed Return to emergency department for worsened symptoms, fevers, dehydration - Post Discharge Activity Forms/Work/School Notes: Back to Work
== END 2018-10-19 14:13 | disposition home or self-care (01) ==
LOC: JERFT 12:31
DX: J09.X2 Influenza due to identified novel influenza A virus with other respiratory manifestations (principal)
CPT/HCPCS: 87804; 99281-25

== ENCOUNTER 2019-03-19 21:22 | Emergency (ER) | payer OTHER | END 2019-03-19 22:36 | disposition home or self-care (01) | LOC: JER 21:22 → JERFT 22:36 ==

== ENCOUNTER 2019-09-10 22:15 | Emergency (ER) | payer OTHER ==
[2019-09-10 22:21] VITALS: BP 114/66; PULSE 90; TEMP 98.1; BMI 28.3
--- NOTE | 2019-09-10 23:17 | PDOC ---
History of Present Illness - General Chief Complaint: Injury Stated Complaint: LACERATION Time Seen by Provider: 09/10/19 23:04 History Source: Patient Exam Limitations: No Limitations Past History - Past Medical History Allergies/Adverse Reactions: Allergies Allergy/AdvReac Type Severity Reaction Status Date / Time No Known Allergies Allergy Verified 09/10/19 22:16 Home Medications: Ambulatory Orders NK [No Known Home Medication] 09/10/19 Cardiac Disorders: Yes (heart murmur) COPD: No - Psycho Social/Smoking Cessation Hx Smoking History: Never smoked Have you smoked in the past 12 months: No Hx Alcohol Use: No Drug/Substance Use Hx: No Substance Use Type: None *Physical Exam - Vital Signs Last Vital Signs Temp Pulse Resp BP Pulse Ox 98.1 F 90 18 114/66 99 09/10/19 22:16 09/10/19 22:16 09/10/19 22:16 09/10/19 22:16 09/10/19 22:16 - Physical Exam General Appearance: No: Apparent Distress Extremity: positive: Other (healing superficial V-shaped laceration along distal end of R ring finger, no active bleeding, no swelling, no purulent drainage, no erythema, no streaking) Integumentary: positive: Normal Color. negative: Swelling, Ecchymosis, Bruising Neurologic: positive: Alert Medical Decision Making - Medical Decision Making 28 y/o F presents as states wound of R 4th finger opened up. Patient cut finger with kitchen knife 2 days ago. Went to urgent care yesterday where site was closed with glue. Today, she noted the wound had opened up and was bleeding. Received tetanus at the time. Denies fever, redness, drainage Given >48 hrs since injury, unable to close now Defer need for abx given wound is superficial, already healing and no sign of infection stable for dc 09/10/19 23:14 Discharge - Discharge Information Problems reviewed: Yes Clinical Impression/Diagnosis: Finger injury Qualifiers: Encounter type: initial encounter Laterality: right Qualified Code(s): S69.91XA - Unspecified injury of right wrist, hand and finger(s), initial encounter Condition: Stable Disposition: HOME - Admission No - Additional Discharge Information Prescription Drug Monitoring Program (I-STOP) results: I-STOP not reviewed - Follow up/Referral - Patient Discharge Instructions Patient Printed Discharge Instructions: DI for Minor Laceration Additional Instructions: Thank you for choosing [facility]. It was a pleasure taking care of you. You may apply Neosporin over site of cut Return to the Emergency Department if your symptoms worsen or persist, you have fever, redness, streaking, purulent drainage or other concerning symptoms. - Post Discharge Activity
== END 2019-09-10 23:30 | disposition home or self-care (01) ==
LOC: JER 22:15
DX: S69.91XA Unspecified injury of right wrist, hand and finger(s), initial encounter (principal); X58.XXXA Exposure to other specified factors, initial encounter; Y93.9 Activity, unspecified; Y92.9 Unspecified place or not applicable
CPT/HCPCS: 99282-25